=== PATIENT | female | born 1985 | race Caucasian/White ===

== ENCOUNTER 2018-01-28 09:51 | Emergency (ER) | payer OTHER | END 2018-01-28 12:05 | disposition home or self-care (01) | LOC: M ED 09:51 | DX: K62.5 Hemorrhage of anus and rectum (principal); K64.8 Other hemorrhoids; K59.00 Constipation, unspecified; Z79.899 Other long term (current) drug therapy | CPT/HCPCS: 87507 ==

== ENCOUNTER → 2019-03-19 | Outpatient (CLI) | payer OTHER ==
[~2019-03-19] MED LIST: ANUC25SU PR; DULC5TAB PO; MULT1TAB10 PO; PROAAER10 INH; SING10TA32 PO; VENTAER IN; ZYRT10CA5 PO; [UNRECOGNIZED DRUG - OTHER]
--- NOTE | 2019-03-19 13:59 | REP ---
BILATERAL MAMMOGRAM WITH DIAGNOSTIC MAMMOGRAM LEFT BREAST AND LEFT BREAST ULTRASOUND: There is a family history of breast cancer in mother at age 60. Tyrer-Cuzick lifetime risk of breast cancer 19.3%. This is the patient's baseline mammogram. There is a history of probable lump in the left upper outer quadrant posteriorly for 2 weeks. The area is marked on the skin with a triangular marker and additional spot compression views are obtained. There is moderate heterogeneous fibroglandular density bilaterally in a fairly symmetrical pattern. I do not see evidence of a mass or architectural distortion. There are no clustered microcalcifications. Real-time sonographic evaluation of the upper outer quadrant of the left breast performed at the site of the palpable lump. There is no evidence of cystic or solid nodule. IMPRESSION: BIRADS 2: BI-RADS/ACR category 2 mammogram. Benign Findings. ACR2 benign. Moderately dense breast parenchymal bilaterally. No mass or clustered microcalcifications bilaterally. There is no mammographic or sonographic evidence at the site of the reported palpable abnormality in the upper outer quadrant of the left breast posteriorly. A negative mammogram and ultrasound should not deter biopsy if there is a clinically suspicious palpable mass present. Clinical correlation and followup recommended. Recommend followup mammogram and ultrasound as clinically indication. This mammogram was interpreted with the aid of an FDA-approved computer-aided detection system. A. Negative x-ray reports should not delay biopsy if a dominant or clinically suspicious mass is present. B. Four to eight percent of cancers are not identified by x-ray. C. Adenosis and dense breasts may obscure an underlying neoplasm. The patient states she/he had a clinical breast exam in February 2019. The patient letter being requested is M2. Electronically Signed by Raúl Valdovinos MD 03/20/2019 09:56 A
== END ==
LOC: M RAD 12:06
DX: N63.20 Unspecified lump in the left breast, unspecified quadrant (principal)